=== PATIENT | female | born 1975 | race Two or more races ===

== ENCOUNTER → 2018-02-01 10:52 | Outpatient (CLI) | payer OTHER, SELFPAY ==
[2018-02-07 15:20] LABS: HPV Reflexed? NOT INDICATED
== END ==
PROVIDERS: Family Provider Family Medicine; PCP Family Medicine; Visit Provider Obstetrics & Gynecology
DX: Z12.4 Encounter for screening for malignant neoplasm of cervix (principal)
CPT/HCPCS: 88175; G0145

== ENCOUNTER 2022-03-17 12:02 | Day surgery (SDC) | payer OTHER, SELFPAY ==
[2022-03-17] VITALS (7 sets, daily range): BP systolic 114–141; BP diastolic 74–88; PULSE 77–92; RESP 16–18; TEMP 36.5–36.7; O2SAT 93–98; BMI 33.3
--- NOTE | 2022-03-17 | GASB_PTH ---
PATIENT: PERCY BEVERLY LOC: [facility] U#:[id number] AGE/SX: 46/F ROOM: RE03/17/[address]: Dr. Kevin Velasquez DO : 1975 BED: DIS: 03/17/2022 SPEC #: [id number] RECD: 03/17/22 14:31 STATUS: [place] RESanto #: [id number] NATAN: 03/17/22 00:[address]: Kevin Velasquez DEPT: SURGICAL PATHOLOGY RECD BY: Cristian George ENTERED: 03/18/22 11:43 SP TYPE: Gastric Bx OTHR DR: Dr. Dorian Roy MD Tissues: A - Gastric mucous membrane B - Gastric mucous membrane C - Duodenum, NOS D - Esophageal mucous membrane E - Esophageal mucous membrane Procedures: Special Stain Group II Surgery Specimen Level IV Alcian Blue/PAS (control) HEADER OPERATION: [place] [place] biopsies PRE-OP DIAGNOSIS: Abdominal pain TISSUE SUBMITTED: A ? Gastric ulcer biopsy, B ? Gastric body biopsy, C ? Duodenum biopsy, D ? Distal esophagus biopsy, E ? Proximal esophagus biopsy MICROSCOPIC DIAGNOSIS A. Gastric ulcer, biopsy: Moderate chronic active gastritis. B. Gastric body, biopsy: Moderate chronic active gastritis. See comment. C. Duodenum, biopsy: A fragment of duodenal mucosa, no pathologic diagnosis. D. Distal esophagus, biopsy: Fragments of gastroesophageal mucosa with moderate acute and chronic inflammation. Intestinal metaplasia (goblet cell metaplasia) not identified. See comment. E. Proximal esophagus, biopsy: Fragments of squamous epithelium, no pathologic diagnosis. SJ:whit 03/19/2022 COMMENT B. The results of immunohistochemistry for Helicobacter pylori will be reported separately ([id number]). D. Alcian blue/PAS stain with matched control is used in the evaluation of the specimen. MICROSCOPIC DESCRIPTION Slides are reviewed. GROSS DESCRIPTION A - Received in fixative is one container labeled with the patient's name and designated gastric ulcer biopsy. The specimen consists of two irregular fragments of light smith soft tissue that in aggregate measure 0.8 x 0.4 x 0.1 cm. The specimen is totally submitted in one cassette. B - Received in fixative is one container labeled with the patient's name and designated gastric body biopsy. The specimen consists of multiple irregular fragments of light smith soft tissue that in aggregate measure 0.5 x 0.5 x 0.1 cm. The specimen is totally submitted in one cassette. C - Received in fixative is one container labeled with the patient's name and designated duodenum biopsy. The specimen consists of one irregular fragment of light smith soft tissue that measures 0.4 x 0.4 x 0.1 cm. The specimen is totally submitted in one cassette. D - Received in fixative is one container labeled with the patient's name and designated distal esophagus biopsy. The specimen consists of two irregular fragments of light smith soft tissue that in aggregate measure 0.6 x 0.2 x 0.1 cm. The specimen is totally submitted in one cassette. E - Received in fixative is one container labeled with the patient's name and designated proximal esophagus biopsy. The specimen consists of two irregular fragments of light smith soft tissue that in aggregate measure 1 x 0.3 x 0.1 cm. The specimen is totally submitted in one cassette. / SJ:rg 03/18/2022 TC:2 CPT: 09638 x5, 25614
[2022-03-17] MEDS: Lactated Ringers 1,000 ML 15 ML IV (12:42)
--- NOTE | 2022-03-17 13:25 | HP.PCM_ITS ---
History and Physical Date of Admission: 03/17/22 PERCY BEVERLY, is a 46 F who presents to the office today for Initial consultation. Percy established with this clinic 01.12.22 with referral from her PCP. She is unable to pinpoint onset of abdominal pain or cramping located RUQ or lower abdomen, but it has been present for several years that can become severe and debilitating. When pain in unmanageable she goes to ED where she receives a narcotic and pain dissipates; in the last year she has presented to ED on two occasions. She presented to [facility] 11.23.21 with symptoms of nausea and emesis with upper abdominal pain. She underwent CT scan with results below and biochemical workup finding elevated glucose 142 and decreased lipase 53. Diagnosed with possible viral gastritis and discharged. Medical history includes anxiety, headache, degenerative joint disease, cholecystectomy (2016). Currently taking probiotic and vitamin. She stopped taking acid suppression and just utilizes probiotic and finds this very helpful. Colonoscopy 01.15.21 performed at [facility] was an unremarkable exam with no polyps found. CT abd/pel 11.23.21 performed at [facility] found stable low-attenuation lesion in left liver lobe. Low-attenuation lesion in segment of small bowel in pelvis. ROS Const Constitutional: No anorexia, fatigue, fever(s), weight change or sleep problems Eyes Eyes: No change in vision ENT ENT: No abnormal hearing, difficulty swallowing, mouth lesions, tongue swelling or throat swelling Resp Respiratory: No cough or shortness of breath Cardio Cardiology: No chest pain at rest, chest pain with exertion, shortness of breath or dyspnea on exertion Gastro GI: No difficulty swallowing Genitourinary-Female: No difficulty urinating or burning urination Musc Musculoskeletal: No joint pain, joint swelling, muscle weakness or decreased muscle mass Skin Skin: No hair loss in leg, yellowing of the eye, itchy eyes, rash, skin ulcer or skin swelling Neuro Neurology: No abnormal hearing, abnormal movements, confusion, unsteady gait/balance or memory loss Psych Psychiatric: No anxiety, No confusion and No memory loss Endo Endocrine: No fatigue or weight change Aller/Imm Allergy/Immunologic: No itchy eyes, throat swelling or tongue swelling Remy/Lymp Hematologic/Lymphatic: No easy bleeding, easy bruising or enlarged lymph nodes Exam Const General: cooperative and comfortable Nutritional Appearance: average body habitus and well nourished [facility] Head: normal to inspection Ears: hearing grossly normal bilaterally Nose: external nose normal Face and sinus: normal facial exam Mouth: oral mucosae normal Throat: posterior oropharynx normal Eyes General: appearance normal, both eyes and all related structures Neck Neck: normal visual inspection Chest Chest palpation & inspection: normal inspection of the chest and normal palpation of entire chest wall Resp Effort & Inspection: normal respiratory effort Auscultation: Bilateral: Clear to Auscultation Cardio Palpation: normal PMI Rate: regular rate Rhythm: regular rhythm GI Inspection: normal to inspection Auscultation: normal bowel sounds Percussion: normal to percussion Palpation: no hepatosplenomegaly Skin General: no rashes or lesions noted Neuro General: patient alert Extrem General: normal to inspection Psych Affect: normal affect Assessment and Plan Assessment and Plan (1) Abdominal pain: Status: Acute Plan - Dr. Brown Friend, DO: The differential diagnosis for abdominal pain does include sphincter of Oddi syndrome type III, peptic ulcer disease, functional bowel disease such as gastroparesis or IBS. She will undergo an upper endoscopy evaluate upper GI tract. We will also get an inflammatory markers such as an ESR, CRP, LDH, amylase, lipase. Further recommendations to follow after she undergoes upper endoscopy and if she would likely need either a capsule endoscopy and or HIDA scan to look for signs of sphincter of Oddi syndrome I have re-examined the patient. There are no clinical changes since date of exam.
--- NOTE | 2022-03-17 13:45 | IMM_PTH ---
PATIENT: PERCY BEVERLY LOC: EN U#:[id number] AGE/SX: 46/F ROOM: RE03/17/[address]: Dr. Kevin Velasquez DO : 1975 BED: DIS: 03/17/2022 SPEC #: [id number] RECD: 03/18/22 13:06 STATUS: [place] RESanto #: [id number] NATAN: 03/17/22 13:[address]: Kevin Velasquez DEPT: IMMUNOHISTOCHEMISTRY RECD BY: Heather Garsia ENTERED: 03/18/22 13:07 SP TYPE: IMMUNO OTHR DR: Dr. Dorian Roy MD Tissues: B - Stomach, NOS Procedures: H Pylori (initial) PHYSICIAN & INSTITUTION [place] [id number] SPECIMEN INFORMATION: Tissue Source: B ? Gastric body Clinical Info: Abdominal pain Specimen Number: [id number] CPT code: 27291 METHODOLOGY: Deparaffinized sections of prefer/formalin-fixed tissue or PAP/DQ stained slides are incubated with monoclonal/polyclonal antibodies/oligonucleotide probes. Localization is made via biotin free immunoperoxidase method. Appropriate controls are performed and reacted as expected. Results on target cell population are indicated in the following table: RESULTS: ANTIBODY / CLONE RESULT Block B H Pylori (polyclonal) positive These tests were developed and their performance characteristics determined by [facility]. They may not have been cleared or approved by the U.S. Food and Drug Administration. The FDA has determined that such clearance or approval is not necessary. The above immunohistochemical/dualISH markers are ordered and reviewed by the Pathologist. INTERPRETATION: B. Gastric body, biopsy: Positive for numerous Helicobacter pylori organisms. SJ:whit 03/19/2022
--- NOTE | 2022-03-17 13:47 | OP.EGD_ITS ---
Patient Name: Nuha Reyna Procedure Date: 03/17/2022 1:19 PM Date of : 1975 Age: 46 Procedure: Upper GI endoscopy Indications: Epigastric abdominal pain Providers: Kevin Velasquez DO Medicines: Monitored Anesthesia Care Patient Profile: This is a 46 year old female. Refer to note in patient chart for documentation of history and physical. Patient has symptoms of chronic abdominal cramping and chronic epigastric abdominal pain. Complications: No immediate complications. Procedure: Pre-Anesthesia Assessment: - Prior to the procedure, a History and Physical was performed, and patient medications and allergies were reviewed. The risks and benefits of the procedure and the sedation options and risks were discussed with the patient. All questions were answered and informed consent was obtained. Patient identification and proposed procedure were verified by the physician in the pre-procedure area. Mental Status Examination: alert and oriented. Airway Examination: normal oropharyngeal airway and neck mobility. Respiratory Examination: clear to auscultation. CV Examination: normal. Prophylactic Antibiotics: The patient does not require prophylactic antibiotics. Prior Anticoagulants: The patient has taken no previous anticoagulant or antiplatelet agents. ASA Grade Assessment: II - A patient with mild systemic disease. After reviewing the risks and benefits, the patient was deemed in satisfactory condition to undergo the procedure. The anesthesia plan was to use moderate sedation / analgesia (conscious sedation). Immediately prior to administration of medications, the patient was re-assessed for adequacy to receive sedatives. The heart rate, respiratory rate, oxygen saturations, blood pressure, adequacy of pulmonary ventilation, and response to care were monitored throughout the procedure. The physical status of the patient was re-assessed after the procedure. After obtaining informed consent, the endoscope was passed under direct vision. Throughout the procedure, the patient's blood pressure, pulse, and oxygen saturations were monitored continuously. The Endoscope was introduced through the mouth, and advanced to the second part of duodenum. The upper GI endoscopy was accomplished without difficulty. The patient tolerated the procedure well. Scope In: 1:32:15 PM Scope Out: 1:39:36 PM Total Procedure Duration Time 0 hours 7 minutes 21 seconds Findings: 2 areas of ectopic gastric mucosa were found in the proximal esophagus and in the mid esophagus. Biopsies were taken with a cold forceps for histology. Verification of patient identification for the specimen was done. Estimated blood loss was minimal. The Z-line was irregular and was found 38 cm from the incisors. Biopsies were taken with a cold forceps for histology. Verification of patient identification for the specimen was done. Estimated blood loss was minimal. Three non-bleeding superficial gastric ulcers with no stigmata of bleeding were found in the prepyloric region of the stomach. The largest lesion was 6 mm in largest dimension. Biopsies were taken with a cold forceps for histology. Verification of patient identification for the specimen was done. Estimated blood loss was minimal. Patchy mildly erythematous mucosa without active bleeding and with no stigmata of bleeding was found in the first portion of the duodenum. Biopsies were taken with a cold forceps for histology. A small hiatal hernia was present. Patchy mildly congested mucosa was found in the gastric body. Biopsies were taken with a cold forceps for histology. Verification of patient identification for the specimen was done. Estimated blood loss was minimal. 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 Biopsied. - Z-line irregular, 38 cm from the incisors. Biopsied. - Non-bleeding gastric ulcers with no stigmata of bleeding. Biopsied. - Erythematous duodenopathy. Biopsied. Recommendation: - Await pathology results. - Repeat upper endoscopy in 1 year for surveillance. - Return to GI clinic. - Continue present medications. Procedure Code(s): --- Professional --- 95797, Esophagogastroduodenoscopy, flexible, transoral; with biopsy, single or multiple CPT copyright 2017 [employer]. All rights reserved. The codes documented in this report are preliminary and upon piercing mill operator review may be revised to meet current compliance requirements. Kevin Velasquez DO 03/17/2022 1:47:27 PM This report has been signed electronically. Number of Addenda: 1 Note Initiated On: 03/17/2022 1:19 PM Addendum Number: 1 Addendum Date: 07/24/2022 6:10:30 AM MAC was used as sedation for this procedure. Kevin Velasquez DO 07/24/2022 6:10:34 AM This report has been signed electronically.
--- NOTE | 2022-03-17 13:48 | OP.CCLET_ITS ---
07/24/2022 Dorian Roy Re : Upper GI endoscopy procedure for Nuha Reyna Arpitar Kirill This procedure was performed on Thursday, March 17, 2022. 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 Biopsied. - Z-line irregular, 38 cm from the incisors. Biopsied. - Non-bleeding gastric ulcers with no stigmata of bleeding. Biopsied. - Erythematous duodenopathy. Biopsied. Recommendations : - Await pathology results. - Repeat upper endoscopy in 1 year for surveillance. - Return to GI clinic. - Continue present medications. My findings are described in the full procedure note, which is enclosed. If I can be of further assistance, please feel free to contact me at . Sincerely, Kevin Velasquez, 03/17/2022 1:47:27 PM This report has been signed electronically.
== END 2022-03-17 15:00 | disposition home or self-care (01) ==
LOC: EN 12:06 → AC 12:09
PROVIDERS: PCP Family Medicine; Referring Provider Family Medicine; Visit Provider Internal Medicine Gastroenterology
PROC: 0DJ08ZZ Inspection of Upper Intestinal Tract, Via Natural or Artificial Opening Endoscopic (ICD-10-PCS; CPT 43235; principal; 2022-03-17 13:40)
DX: K29.50 Unspecified chronic gastritis without bleeding (principal); K25.9 Gastric ulcer, unspecified as acute or chronic, without hemorrhage or perforation; K76.9 Liver disease, unspecified
CPT/HCPCS: 43239; 88305; 88313; 88342; J7120; J2405

== ENCOUNTER → 2022-05-22 | Outpatient (CLI) | payer OTHER, SELFPAY ==
[2022-05-27 16:24] LABS: H. PYLORI STOOL AG Negative (Negative)
== END | disposition home or self-care (01) ==
PROVIDERS: PCP Family Medicine; Referring Provider Internal Medicine Gastroenterology; Visit Provider Internal Medicine Gastroenterology
DX: A04.8 Other specified bacterial intestinal infections (principal); R10.9 Unspecified abdominal pain

== ENCOUNTER 2022-08-03 06:01 | Day surgery (SDC) | payer OTHER, SELFPAY ==
--- NOTE | 2022-08-03 | GASB_PTH ---
PATIENT: PERCY BEVERLY LOC: EN U#:[id number] AGE/SX: 46/F ROOM: RE08/03/[address]: Dr. Kevin Velasquez DO : 1975 BED: DIS: 08/03/2022 SPEC #: [id number] RECD: 08/03/22 12:39 STATUS: [place] RESanto #: [id number] NATAN: 08/03/22 00:[address]: Kevin Velasquez DEPT: SURGICAL PATHOLOGY RECD BY: Cristian George ENTERED: 08/03/22 12:40 SP TYPE: Gastric Bx OTHR DR: Dr. Dorian Roy MD Tissues: A - Gastric mucous membrane B - Duodenum, NOS C - Esophageal mucous membrane Procedures: Special Stain Group II Surgery Specimen Level IV Alcian Blue/PAS (control) HEADER OPERATION: EGD ([facility] [place] biopsy PRE-OP DIAGNOSIS: H. pylori infection, gastric ulcer, femoral hernia TISSUE SUBMITTED: A ? Antrum biopsy for histo and H. pylori, B ? Duodenum biopsy, C ? Distal esophagus biopsy MICROSCOPIC DIAGNOSIS A. Antrum, biopsy: Moderate gastritis. See microscopic description and comment. B. Duodenum, biopsy: Fragments of duodenal mucosa, no pathologic diagnosis. C. Distal esophagus, biopsy: Fragments of gastroesophageal mucosa with moderate chronic inflammation and mild acute inflammation. Intestinal metaplasia (goblet cell metaplasia) not identified. See comment. SJ:whit 08/04/2022 COMMENT A. The results of immunohistochemistry for Helicobacter pylori will be reported separately ([id number]). C. Alcian blue/PAS stain with matched control is used in the evaluation of the specimen. MICROSCOPIC DESCRIPTION Slides are reviewed. A. The specimen shows fragments of gastric mucosa with chronic inflammatory cell infiltrates in the lamina propria consisting of lymphocytes and plasma cells, consistent with moderate chronic gastritis. GROSS DESCRIPTION A - Received in fixative is one container labeled with the patient's name and designated antrum biopsy. The specimen consists of two irregular fragments of light smith soft tissue that in aggregate measure 1 x 0.3 x 0.1 cm. The specimen is totally submitted in one cassette. B - Received in fixative is one container labeled with the patient's name and designated duodenum biopsy. The specimen consists of multiple irregular fragments of light smith soft tissue that in aggregate measure 1.5 x 0.3 x 0.1 cm. The specimen is totally submitted in one cassette. C - Received in fixative is one container labeled with the patient's name and designated distal esophagus biopsy. The specimen consists of multiple irregular fragments of light smith soft tissue that in aggregate measure 1 x 0.3 x 0.1 cm. The specimen is totally submitted in one cassette. / SJ:rg 08/03/2022 TC:3 CPT: 23980 x3, 95767
--- NOTE | 2022-08-03 06:35 | PCM.HP.BLA ---
History and Physical Date of Admission: 08/03/22 PERCY BEVERLY, is a 46 F who presents to the office today for follow up visit. Percy established with this clinic 01.12.22 with referral from her PCP. She is unable to pinpoint onset of abdominal pain or cramping located RUQ or lower abdomen, but it has been present for several years that can become severe and debilitating. When pain in unmanageable she goes to ED where she receives a narcotic and pain dissipates; in the last year she has presented to ED on two occasions. She presented to [facility] 11.23.21 with symptoms of nausea and emesis with upper abdominal pain. She underwent CT scan with results below and biochemical workup finding elevated glucose 142 and decreased lipase 53. Diagnosed with possible viral gastritis and discharged. ? Medical history includes anxiety, headache, degenerative joint disease, cholecystectomy (2016). Currently taking probiotic and vitamin. She stopped taking acid suppression and just utilizes probiotic and finds this very helpful.? ? Colonoscopy 01.15.21 performed at [facility] was an unremarkable exam with no polyps found.? ? CT abd/pel 11.23.21 performed at [facility] found stable low-attenuation lesion in left liver lobe. Low-attenuation lesion in segment of small bowel in pelvis. ? ? EGD 03.17.22 finding ectopic gastric mucosa in proximal esophagus (squamous epithelium) and mid esophagus without metaplasia; irregular Z-line 38 cm from incisors; non-bleeding gastric ulcers, gastritis; erythematous duodenopathy. H.Pylori positive.? Treated with five therapy flagyl, clarithromycin, amoxicillin, protonix, peptobismol? ? H.Pylori stool retest 05.22.22 negative.? ? Plan LV 04.19.22:? Abdominal pain ? likely secondary to gastric ulcers and gastritis associated with recent h.pylori infection? H.Pylori infection ? recommend 5 drug treatment and repeat stool testing in 21 days.? Patient denies any change in BM, denies blood in stool or sputum, denies any abdominal pain. ? ? ROS Const Constitutional: No anorexia, body ache, chills, excessive sweating, fatigue, fever(s), frequent falls, headache(s), decreased energy, malaise, night sweats, snoring, weakness, weight change, sleep problems, abnormal sleep pattern, change in appetite or other Eyes Eyes: No change in vision or visual disturbances ENT ENT: No abnormal hearing, headache(s), difficulty swallowing, mouth lesions, neck pain, tongue swelling or throat swelling Resp Respiratory: No cough, shortness of breath or snoring Cardio Cardiology: No chest pain at rest, chest pain with exertion, leg pain with exertion, excessive sweating, shortness of breath or dyspnea on exertion Gastro GI: Positive for heartburn; No abdominal pain, belching, bloating, change in bowel habits, change in stool character, coffee ground emesis, constipation, cramping, diarrhea, difficulty swallowing, feeling full early, excessive flatus, incontinent of stools, Vomiting blood/hematemesis, Blood in stool, loose stools, Black,tarry stools, nausea/dyspepsia, pain with swallowing, vomiting or other Genitourinary-Female: No difficulty urinating or burning urination Musc Musculoskeletal: Positive for joint pain and Arthritis; No abnormal gait, back pain, deformity, joint swelling, limited range of motion, loss of height, muscle cramps, muscle weakness, decreased muscle mass, myalgias, neck pain, numbness, radiating pain into limb, stiffness, tingling, sciatica, restless legs, leg pain at night, leg pain with exertion or other Skin Skin: No acne, hair loss in leg, change in hair, nail changes, boil, change in skin color, dry skin, redness, excessive hair growth, yellowing of the eye, lesions, itchy eyes, rash, skin pain, skin ulcer, sores, skin swelling, wounds or other Neuro Neurology: Positive for unsteady gait/balance; No abnormal gait, abnormal hearing, abnormal movements, abnormal speech, behavioral changes, confusion, dizziness, weakness, frequent falls, headache(s), lack of coordination, loss of vision, memory loss, numbness, tingling, visual disturbances, restless legs, fainting, tremor(s), Increased tone in limbs, paralysis, seizures or other Psych Psychiatric: No abnormal sleep pattern, No lack of enjoyment, Positive for anxiety, No behavioral changes, No change in appetite, No confusion, No depression, No difficulty concentrating, No hopelessness, No irritability, No memory loss, No mood swings, No panic attacks, No paranoia, No Thoughts of harming yourself/Others, No hallucinations, No Behavioral Problems, No Compulsive Behavior, No hyperactivity, No inattentiveness, No obsessions/compulsions, No Temper Tantrums, No suicidal ideation and No other Endo Endocrine: No excessive sweating, fatigue or weight change Aller/Imm Allergy/Immunologic: No itchy eyes, throat swelling or tongue swelling Remy/Lymp Hematologic/Lymphatic: No easy bleeding, easy bruising or enlarged lymph nodes Exam Const General: cooperative and comfortable Nutritional Appearance: average body habitus and well nourished [facility] Head: normal to inspection Ears: hearing grossly normal bilaterally Nose: external nose normal Face and sinus: normal facial exam Mouth: oral mucosae normal Throat: posterior oropharynx normal Eyes General: appearance normal, both eyes and all related structures Neck Neck: normal visual inspection Chest Chest palpation & inspection: normal inspection of the chest and normal palpation of entire chest wall Resp Effort & Inspection: normal respiratory effort Auscultation: Bilateral: Clear to Auscultation Cardio Palpation: normal PMI Rate: regular rate Rhythm: regular rhythm GI Inspection: normal to inspection Auscultation: normal bowel sounds Percussion: normal to percussion Palpation: no hepatosplenomegaly Skin General: no rashes or lesions noted Neuro General: patient alert Extrem General: normal to inspection Psych Affect: normal affect Quality Reporting Tobacco Screening ([facility] 138) Smoking Status: Never smoker Assessment and Plan Assessment and Plan (1) H. pylori infection: ?Status:?Acute ?Plan: She he completed quadruple therapy for H. pylori infection with amoxicillin, clarithromycin, pantoprazole and bismuth subsalicylate.? Her repeat stool studies for H. pylori were negative. (2) Gastric ulcer: ?Status:?Acute ?Plan: She would need to undergo repeat upper endoscopy to confirm that the gastric ulcer is completely gone. (3) Femoral hernia: ?Status:?Acute ?Plan: She has a little bit of tenderness when she gets constipated and in the right lower quadrant that is a femoral hernia.? It is not a deep femoral hernia.? I would estimate only about a centimeter.? It does not bother her on a daily basis.? I recommended Fiber Choice therapy for her to take on a daily basis to make sure she has a good bowel movement at least twice a day. I have re-examined the patient. There are no clinical changes since date of exam.
[2022-08-03 06:39] VITALS: BP 153/86; PULSE 73; RESP 16; TEMP 36.3; O2SAT 98; BMI 34.4
[2022-08-03] MEDS: Lactated Ringers 1,000 ML 15 ML IV (06:44)
--- NOTE | 2022-08-03 07:15 | IMM_PTH ---
PATIENT: PERCY BEVERLY LOC: EN U#:[id number] AGE/SX: 46/F ROOM: RE08/03/[address]: Dr. Kevin Velasquez DO : 1975 BED: DIS: 08/03/2022 SPEC #: [id number] RECD: 08/03/22 10:36 STATUS: [place] REQ #: [id number] NATAN: 08/03/22 07:[address]: Kevin Velasquez DEPT: IMMUNOHISTOCHEMISTRY RECD BY: Heather Garsia ENTERED: 08/03/22 10:36 SP TYPE: IMMUNO OTHR DR: Dr. Dorian Roy MD Tissues: A - Stomach, NOS Procedures: H Pylori (initial) PHYSICIAN & INSTITUTION [place] [id number] SPECIMEN INFORMATION: Tissue Source: A ? Antrum biopsy Clinical Info: H. pylori infection, gastric ulcer, femoral hernia Specimen Number: [id number] CPT code: 52527 METHODOLOGY: Deparaffinized sections of prefer/formalin-fixed tissue or PAP/DQ stained slides are incubated with monoclonal/polyclonal antibodies/oligonucleotide probes. Localization is made via biotin free immunoperoxidase method. Appropriate controls are performed and reacted as expected. Results on target cell population are indicated in the following table: RESULTS: ANTIBODY / CLONE RESULT Block A H Pylori (polyclonal) negative These tests were developed and their performance characteristics determined by [facility]. They may not have been cleared or approved by the U.[place]. Food and Drug Administration. The FDA has determined that such clearance or approval is not necessary. The above immunohistochemical/dualISH markers are ordered and reviewed by the Pathologist. INTERPRETATION: A. Antrum, biopsy: Negative for Helicobacter pylori organisms. [place]:whit 08/04/2022
[2022-08-03 07:25] VITALS: BP 130/77; BP 152/86; PULSE 87; RESP 14; TEMP 36.6; O2SAT 98
--- NOTE | 2022-08-03 07:28 | OP.CCLET_ITS ---
08/03/2022 Dorian Roy Re : Upper GI endoscopy procedure for Nuha Reyna Dear Kirill This procedure was performed on Wednesday, August 03, 2022. My impressions and recommendations are as follows: Impressions : - LA Grade A reflux esophagitis. Biopsied. - Small hiatal hernia. - Erythematous mucosa in the antrum. Biopsied. - Erythematous duodenopathy. Biopsied. Recommendations : - Discharge patient to home. - Resume previous diet. - Continue present medications. - Await pathology results. My findings are described in the full procedure note, which is enclosed. If I can be of further assistance, please feel free to contact me at . Sincerely, Kevin Velasquez, 08/03/2022 7:27:50 AM This report has been signed electronically.
--- NOTE | 2022-08-03 07:28 | OP.EGD_ITS ---
Patient Name: Nuha Reyna Procedure Date: 08/03/2022 7:10 AM Date of : 1975 Age: 46 Procedure: Upper GI endoscopy Indications: Helicobacter pylori Providers: Kevin Velasquez DO Referring MD: Dorian Roy Medicines: Monitored Anesthesia Care Patient Profile: This is a 46 year old female. Refer to note in patient chart for documentation of history and physical. Patient has symptoms of chronic epigastric abdominal pain and chronic dyspepsia. Complications: No immediate complications. Procedure: Pre-Anesthesia Assessment: - Prior to the procedure, a History and Physical was performed, and patient medications and allergies were reviewed. The risks and benefits of the procedure and the sedation options and risks were discussed with the patient. All questions were answered and informed consent was obtained. Patient identification and proposed procedure were verified by the physician in the pre-procedure area. Mental Status Examination: alert and oriented. Airway Examination: normal oropharyngeal airway and neck mobility. Respiratory Examination: clear to auscultation. CV Examination: normal. Prophylactic Antibiotics: The patient does not require prophylactic antibiotics. Prior Anticoagulants: The patient has taken no previous anticoagulant or antiplatelet agents. ASA Grade Assessment: II - A patient with mild systemic disease. After reviewing the risks and benefits, the patient was deemed in satisfactory condition to undergo the procedure. The anesthesia plan was to use monitored anesthesia care (MAC). Immediately prior to administration of medications, the patient was re-assessed for adequacy to receive sedatives. The heart rate, respiratory rate, oxygen saturations, blood pressure, adequacy of pulmonary ventilation, and response to care were monitored throughout the procedure. The physical status of the patient was re-assessed after the procedure. After obtaining informed consent, the endoscope was passed under direct vision. Throughout the procedure, the patient's blood pressure, pulse, and oxygen saturations were monitored continuously. The gastroscope was introduced through the mouth, and advanced to the second part of duodenum. The upper GI endoscopy was accomplished without difficulty. The patient tolerated the procedure well. Scope In: 7:14:06 AM Scope Out: 7:19:48 AM Total Procedure Duration Time 0 hours 5 minutes 42 seconds Findings: LA Grade A (one or more mucosal breaks less than 5 mm, not extending between tops of 2 mucosal folds) esophagitis with no bleeding was found 36 to 38 cm from the incisors. Biopsies were taken with a cold forceps for histology. Verification of patient identification for the specimen was done. Estimated blood loss was minimal. A small hiatal hernia was present. Patchy mildly erythematous mucosa without bleeding was found in the gastric antrum. Biopsies were taken with a cold forceps for histology. Verification of patient identification for the specimen was done. Estimated blood loss was minimal. Patchy mildly erythematous mucosa without active bleeding and with no stigmata of bleeding was found in the duodenal bulb. Biopsies were taken with a cold forceps for histology. Verification of patient identification for the specimen was done. Estimated blood loss was minimal. Impression: - LA Grade A reflux esophagitis. Biopsied. - Small hiatal hernia. - Erythematous mucosa in the antrum. Biopsied. - Erythematous duodenopathy. Biopsied. Recommendation: - Discharge patient to home. - Resume previous diet. - Continue present medications. - Await pathology results. Procedure Code(s): --- Professional --- 19903, Esophagogastroduodenoscopy, flexible, transoral; with biopsy, single or multiple CPT copyright 2017 [employer]. All rights reserved. The codes documented in this report are preliminary and upon actuarial trainee review may be revised to meet current compliance requirements. Kevin Velasquez DO 08/03/2022 7:27:50 AM This report has been signed electronically. Number of Addenda: 0 Note Initiated On: 08/03/2022 7:10 AM
[2022-08-03 07:30] VITALS: BP 122/85; BP 152/86; PULSE 81; RESP 14; O2SAT 95
[2022-08-03 07:35] VITALS: BP 129/73; BP 152/86; PULSE 73; RESP 14; O2SAT 95
[2022-08-03 07:41] VITALS: BP 133/80; BP 152/86; PULSE 75; RESP 14; TEMP 36.9; O2SAT 99
[2022-08-03 07:55] VITALS: BP 152/86
== END 2022-08-03 08:04 | disposition home or self-care (01) ==
LOC: EN 06:02 → AC 06:04
PROVIDERS: PCP Family Medicine; Referring Provider Family Medicine; Visit Provider Internal Medicine Gastroenterology
PROC: 0DJ08ZZ Inspection of Upper Intestinal Tract, Via Natural or Artificial Opening Endoscopic (ICD-10-PCS; CPT 43235; principal; 2022-08-03 07:10)
DX: K29.50 Unspecified chronic gastritis without bleeding (principal); K44.9 Diaphragmatic hernia without obstruction or gangrene; K31.89 Other diseases of stomach and duodenum; K21.00 Gastro-esophageal reflux disease with esophagitis, without bleeding; G47.30 Sleep apnea, unspecified
CPT/HCPCS: 43239; 88305; 88313; 88342; J7120; J2405

== ENCOUNTER → 2022-08-18 | Outpatient (CLI) | payer OTHER, SELFPAY ==
[2022-08-18 09:27] LABS: Erythrocyte Sedimentation Rate 12 mm/hr (0-30)
[2022-08-18 09:34] LABS: CRP < 2.90 mg/L (0.0-3.0)
== END | disposition home or self-care (01) ==
PROVIDERS: PCP Family Medicine; Referring Provider Internal Medicine Gastroenterology; Visit Provider Internal Medicine Gastroenterology
DX: A04.8 Other specified bacterial intestinal infections (principal); R10.9 Unspecified abdominal pain
CPT/HCPCS: 36415; 85652; 86140